=== PATIENT | female | born 2000 | race Two or more races ===

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

== ENCOUNTER 2022-11-02 00:58 | Emergency (ER) | payer MEDICAID, OTHER ==
[~2022-11-02] VITALS: Ht 165.1 cm; Wt 77.0 kg
[2022-11-02] MEDS ORDERED: LIDOCAINE 1% HCL (LOCAL ANESTH.) INJ 20ML MDV IJ ONE (03:45)
[2022-11-02 04:19] VITALS: BP 117/71; PULSE 98; RESP 18; TEMP 97.9; O2SAT 98
== END 2022-11-02 04:12 | disposition home or self-care (01) ==
LOC: ER 01:02
DX: S71.111A Laceration without foreign body, right thigh, initial encounter (principal); F32.9 Major depressive disorder, single episode, unspecified; F12.10 Cannabis abuse, uncomplicated; X78.8XXA Intentional self-harm by other sharp object, initial encounter; Y93.89 Activity, other specified; Y92.89 Other specified places as the place of occurrence of the external cause; Y99.8 Other external cause status
CPT/HCPCS: 12004; 99282; J2001

== ENCOUNTER 2022-11-05 07:35 | Emergency (ER) | payer MEDICAID ==
[~2022-11-05] VITALS: Ht 165.1 cm; Wt 75.5 kg
[2022-11-05 08:38] VITALS: BP 131/86; PULSE 89; RESP 16; TEMP 97.8; O2SAT 97
== END 2022-11-05 09:07 | disposition home or self-care (01) ==
LOC: ER 07:35
DX: S01.411D Laceration without foreign body of right cheek and temporomandibular area, subsequent encounter (principal); F12.10 Cannabis abuse, uncomplicated; X58.XXXD Exposure to other specified factors, subsequent encounter; F32.9 Major depressive disorder, single episode, unspecified

== ENCOUNTER 2022-11-10 12:30 | Emergency (ER) | payer MEDICAID ==
[~2022-11-10] VITALS: Ht 160 cm; Wt 74.1 kg
[2022-11-10 14:08] VITALS: BP 135/79; PULSE 96; RESP 16; TEMP 98.1; O2SAT 100
== END 2022-11-10 14:11 | disposition home or self-care (01) ==
LOC: ER 12:30
DX: S71.111D Laceration without foreign body, right thigh, subsequent encounter (principal); F32.9 Major depressive disorder, single episode, unspecified; F12.90 Cannabis use, unspecified, uncomplicated; X58.XXXD Exposure to other specified factors, subsequent encounter

== ENCOUNTER 2022-12-19 21:26 | Emergency (ER) | payer MEDICAID ==
[~2022-12-19] VITALS: Ht 165.1 cm; Wt 77.7 kg
[2022-12-19 22:38] VITALS: BP 114/68; PULSE 95; RESP 17; O2SAT 99
== END 2022-12-19 22:48 | disposition home or self-care (01) ==
LOC: ER 21:26
DX: S30.850A Superficial foreign body of lower back and pelvis, initial encounter (principal); F12.10 Cannabis abuse, uncomplicated; W23.0XXA Caught, crushed, jammed, or pinched between moving objects, initial encounter; Y93.89 Activity, other specified; Y92.89 Other specified places as the place of occurrence of the external cause; Y99.8 Other external cause status
CPT/HCPCS: 10120

== ENCOUNTER 2023-04-18 09:31 | Emergency (ER) | payer MEDICAID ==
[~2023-04-18] VITALS: Ht 165.1 cm; Wt 81.4 kg
[2023-04-18 09:52] VITALS: BP 113/61; PULSE 71; RESP 16; O2SAT 100
== END 2023-04-18 13:25 | disposition left against medical advice (07) ==
LOC: ER 09:31
DX: M79.10 Myalgia, unspecified site (principal); Z53.21 Procedure and treatment not carried out due to patient leaving prior to being seen by health care provider